=== PATIENT | female | born 1965 | race African-American/Black ===

== ENCOUNTER 2017-10-04 16:32 | Inpatient (IN) | payer OTHER, MEDICAID ==
[~2017-10-04] VITALS: Ht 160 cm; Wt 42.0 kg
[2017-10-04] MEDS ORDERED: SODIUM CHLORIDE 0.9% 1,000 ML IV ONE (17:22)
[2017-10-04] MEDS ORDERED: LORAZEPAM 2MG/ML CPJ IV ONE (17:30)
[2017-10-04 17:57] LABS: BASOPHILS % 0.6 % (0.0-2.0); EOSINOPHILS % 0.3 % (0.0-5.0); HEMATOCRIT. 42.6 % (36.0-48.0); HEMOGLOBIN. 14.9 g/dL (12.0-16.0); LYMPHOCYTES % 15.2 % (20.0-50.0); MEAN CORPUSCULAR HEMOGLOBIN 30.8 pg (28.0-32.0); MEAN CORPUSCULAR VOLUME 88.2 fL (81.0-99.0); MEAN PLATELET VOLUME 9.8 fl (7.4-10.4); MONOCYTES % 9.9 % (2.0-8.0); PLATELET 189 x1000/uL (130-400); RED BLOOD CELL COUNT 4.83 mill/uL (4.2-5.4); RED CELL DISTRIBUTION WIDTH 12.4 % (11.6-14.6)
[2017-10-04 18:01] LABS: CHLORIDE 106 mEq/L (98-107)
[2017-10-04 18:05] LABS: PARTIAL THROMBOPLASTIN TIME 23.3 sec (23.4-31.0); PROTHROMBIN TIME 10.8 sec (9.4-11.6)
[2017-10-04 18:12] LABS: CARBON DIOXIDE 26 mEq/L (21-32); TROPONIN I 0.18 ng/mL (0.00-0.04)
[2017-10-04 18:13] LABS: CREATINE KINASE MB FRACTION 29.2 ng/mL (0.5-3.6)
[2017-10-04 19:25] LABS: CLARITY URINE CLOUDY (CLEAR); COLOR URINE YELLOW (YELLOW); KETONES URINE 1+ (NEGATIVE); LEUKOCYTE ESTERASE URINE NEGATIVE (NEGATIVE); NITRITE URINE NEGATIVE (NEGATIVE); OCCULT BLOOD URINE 1+ (NEGATIVE); PROTEIN URINE 1+ (NEGATIVE)
[2017-10-04] MEDS ORDERED: ASPIRIN 300MG SUPP PR ONE (20:15)
[2017-10-04] MEDS ORDERED: ONDANSETRON HCL 4MG/2ML VIAL IV PRN (20:45)
[2017-10-04 21:13] LABS: ETHANOL BLOOD < 10 mg/dL
[2017-10-04 21:17] LABS: CREATINE KINASE 3270 IU/L (26-192)
[2017-10-04 22:01] LABS: *AMPHETAMINES SCREEN URINE NEGATIVE (NEGATIVE); *BARBITURATES SCREEN URINE NEGATIVE (NEGATIVE); *BENZODIAZEPINES SCREEN URINE NEGATIVE (NEGATIVE); *COCAINE SCREEN URINE NEGATIVE (NEGATIVE); CANNABINOID URINE SCREEN NEGATIVE (NEGATIVE); METHADONE URINE SCREEN NEGATIVE (NEGATIVE); OPIATES URINE SCREEN NEGATIVE (NEGATIVE); PHENCYCLIDINE URINE SCREEN NEGATIVE (NEGATIVE)
[2017-10-04 23:30] VITALS: BP 138/83
[2017-10-05] VITALS: BP 138/83
[2017-10-05] MEDS ORDERED: ATOR10TA69 PO (00:35)
[2017-10-05] MEDS ORDERED: CLOP75TA33 PO (00:35)
[2017-10-05] MEDS ORDERED: BENZ100C86 PO (00:35)
[2017-10-05] MEDS: DEXT 5%/0.45% NACL 1000ML 1,000 ML IV SCH ×2 (00:47→17:16)
[2017-10-05 04:00] VITALS: BP_SYST 114; BP_SYST 120; BP_DIAS 68; BP_DIAS 75
[2017-10-05 06:50] LABS: BASOPHILS % 0.4 % (0.0-2.0); EOSINOPHILS % 0.1 % (0.0-5.0); HEMATOCRIT. 40.3 % (36.0-48.0); HEMOGLOBIN. 14.3 g/dL (12.0-16.0); MEAN CORPUSCULAR HEMOGLOBIN 31.4 pg (28.0-32.0); MEAN CORPUSCULAR VOLUME 88.4 fL (81.0-99.0); MEAN PLATELET VOLUME 10.5 fl (7.4-10.4); MONOCYTES % 11.5 % (2.0-8.0); PLATELET 193 x1000/uL (130-400); RED BLOOD CELL COUNT 4.56 mill/uL (4.2-5.4); RED CELL DISTRIBUTION WIDTH 12.4 % (11.6-14.6)
[2017-10-05 08:00] VITALS: BP 143/87
[2017-10-05] MEDS: PANTOPRAZOLE SODIUM 40 MG/VIAL IV SCH (08:29)
[2017-10-05 08:38] LABS: CHLORIDE 107 mEq/L (98-107)
[2017-10-05 09:07] LABS: CARBON DIOXIDE 24 mEq/L (21-32); CREATINE KINASE 2154 IU/L (26-192); CREATINE KINASE MB FRACTION 12.8 ng/mL (0.5-3.6); HDL CHOLESTEROL 54 mg/dL (40-59); LDL CHOLESTEROL 79 mg/dL (5-100); PHOSPHORUS 3.3 mg/dL (2.5-4.9); TROPONIN I 0.12 ng/mL (0.00-0.04)
[2017-10-05 10:14] LABS: AMMONIA 77 uMol/L (<32)
[2017-10-05 12:00] VITALS: BP 128/75
[2017-10-05] MEDS ORDERED: LORAZEPAM 2MG/ML CPJ IV NR (12:26)
[2017-10-05 13:02] LABS: CREATINE KINASE 2158 IU/L (26-192)
[2017-10-05] MEDS: LACTULOSE 20G/30ML UDC PO SCH ×2 (13:59→21:09)
[2017-10-05 16:00] VITALS: BP 154/91
[2017-10-05 20:00] VITALS: BP 135/93
[2017-10-05] MEDS ORDERED: ATORVASTATIN CALCIUM 40MG TABLET PO SCH (21:00)
[2017-10-06] VITALS (7 sets, daily range): BP systolic 112–123; BP diastolic 74–91
[2017-10-06] MEDS: LACTULOSE 20G/30ML UDC PO SCH ×2 (05:33→17:47)
[2017-10-06 06:13] LABS: BASOPHILS % 0.3 % (0.0-2.0); EOSINOPHILS % 0.2 % (0.0-5.0); HEMATOCRIT. 40.5 % (36.0-48.0); HEMOGLOBIN. 14.2 g/dL (12.0-16.0); LYMPHOCYTES % 32.8 % (20.0-50.0); MEAN CORPUSCULAR HEMOGLOBIN 30.9 pg (28.0-32.0); MEAN CORPUSCULAR VOLUME 88.3 fL (81.0-99.0); MEAN PLATELET VOLUME 10.2 fl (7.4-10.4); MONOCYTES % 8.5 % (2.0-8.0); NEUTROPHILS % 58.2 % (40.0-76.0); PLATELET 183 x1000/uL (130-400); RED BLOOD CELL COUNT 4.59 mill/uL (4.2-5.4); RED CELL DISTRIBUTION WIDTH 12.4 % (11.6-14.6)
[2017-10-06 09:37] LABS: CARBON DIOXIDE 24 mEq/L (21-32); CHLORIDE 108 mEq/L (98-107)
[2017-10-06] MEDS: PANTOPRAZOLE SODIUM 40 MG/VIAL IV SCH (09:45)
[2017-10-06] MEDS: DEXT 5%/0.45% NACL 1000ML 1,000 ML IV SCH (09:47)
[2017-10-06] MEDS ORDERED: ASPIRIN 81MG TABLET PO SCH (13:15)
[2017-10-06] MEDS ORDERED: CLOPIDOGREL 75MG TABLET PO SCH (14:45)
[2017-10-07 08:00] VITALS: BP 123/65
[2017-10-07] MEDS ORDERED: FAMOTIDINE 20MG TABLET PO SCH (09:00)
== END 2017-10-06 21:00 | disposition short-term general hospital (02) | DRG 64 ==
LOC: ER 16:53 → SUPCPDRO 20:12 → EDBEDREQ 20:17 → 5WST 20:19 → ENRESERV 20:36
PROVIDERS: ADMIT Family Medicine Adult Medicine; ATTEND Family Medicine Adult Medicine
PROC: 4A00X4Z Measurement of Central Nervous Electrical Activity, External Approach (ICD-10-PCS; principal; 2017-10-06)
DX: I63.9 Cerebral infarction, unspecified (principal); G92 Toxic encephalopathy; E72.20 Disorder of urea cycle metabolism, unspecified; M62.82 Rhabdomyolysis; R47.01 Aphasia; E78.5 Hyperlipidemia, unspecified; I10 Essential (primary) hypertension; R32 Unspecified urinary incontinence; Z88.0 Allergy status to penicillin; Z88.8 Allergy status to other drugs, medicaments and biological substances
CPT/HCPCS: 36415; 70450; 70551; 71045; 80048; 80053; 80061; 80076; 80305; 81001; 82140; 82550; 82553; 83036; 83735; 84100; 84443; 84484; 85025; 85610; 85730; 87086; 87804; 93005; 93306; 93880; 93970; 96361; 96374; 99285; C9113; G0482; J2060; J7030

== ENCOUNTER 2018-07-29 04:45 | Inpatient (IN) | payer OTHER, MEDICAID ==
[2018-07-29] VITALS (8 sets, daily range): BP systolic 117–159; BP diastolic 50–80
[~2018-07-29] VITALS: Ht 160 cm; Wt 41.7 kg
[~2018-07-29 04:45] MED LIST: ATOR10TA69 PO; BENZ100C86 PO; CLOP75TA33 PO
[2018-07-29 05:03] LABS: HEMATOCRIT. 39.1 % (36.0-48.0); HEMOGLOBIN. 14.1 g/dL (12.0-16.0); MEAN CORPUSCULAR HEMOGLOBIN 30.7 pg (28.0-32.0); MEAN CORPUSCULAR VOLUME 85.2 fL (81.0-99.0); MEAN PLATELET VOLUME 9.1 fl (7.4-10.4); PLATELET 169 x1000/uL (130-400); RED BLOOD CELL COUNT 4.59 mill/uL (4.2-5.4); RED CELL DISTRIBUTION WIDTH 12.8 % (11.6-14.6)
[2018-07-29 05:07] LABS: CHLORIDE 106 mEq/L (98-107)
[2018-07-29 05:11] LABS: INR 1.1; PARTIAL THROMBOPLASTIN TIME 25.4 sec (23.4-31.0); PROTHROMBIN TIME 10.7 sec (9.1-11.1)
[2018-07-29 05:12] LABS: ETHANOL BLOOD < 10 mg/dL
[2018-07-29 05:14] LABS: LDL CHOLESTEROL 51 mg/dL (5-100)
[2018-07-29 05:16] LABS: CREATINE KINASE 84 IU/L (26-192)
[2018-07-29 05:22] LABS: PLATELET ESTIMATE NORMAL
[2018-07-29] MEDS ORDERED: LORAZEPAM 2MG/ML CPJ ONE (05:27)
[2018-07-29] MEDS ORDERED: LEVETIRACETAM 500MG PREMIX 100 ML IV ONE ×2 (05:30→06:15)
[2018-07-29] MEDS ORDERED: LORAZEPAM 2MG/ML CPJ IV ONE (06:30)
[2018-07-29 06:56] LABS: CLARITY URINE CLEAR (CLEAR); COLOR URINE YELLOW (YELLOW); KETONES URINE NEGATIVE (NEGATIVE); LEUKOCYTE ESTERASE URINE NEGATIVE (NEGATIVE); NITRITE URINE NEGATIVE (NEGATIVE); OCCULT BLOOD URINE NEGATIVE (NEGATIVE); PH URINE 7.5 (4.5-8.0); PROTEIN URINE NEGATIVE (NEGATIVE); SPECIFIC GRAVITY URINE 1.019 (1.005-1.030); UROBILINOGEN URINE 0.2 E.U./dL (0.2-1.0)
[2018-07-29 07:05] LABS: *AMPHETAMINES SCREEN URINE NEGATIVE (NEGATIVE); *BARBITURATES SCREEN URINE NEGATIVE (NEGATIVE); *BENZODIAZEPINES SCREEN URINE NEGATIVE (NEGATIVE); *COCAINE SCREEN URINE NEGATIVE (NEGATIVE); METHADONE URINE SCREEN NEGATIVE (NEGATIVE); OPIATES URINE SCREEN NEGATIVE (NEGATIVE)
[2018-07-29 07:06] LABS: CANNABINOID URINE SCREEN NEGATIVE (NEGATIVE); PHENCYCLIDINE URINE SCREEN NEGATIVE (NEGATIVE)
[2018-07-29] MEDS ORDERED: IOHEXOL-350 100 ML BOTTLE ONE (07:49)
[2018-07-29] MEDS ORDERED: IPRATROPIUM/ALBUTEROL 0.5-3(2.5)MG/3ML NEB INH PRN (08:00)
[2018-07-29] MEDS ORDERED: MAGNESIUM/ALUMINUM HYDROXIDE/SIMETHICONE 30ML UDC PO PRN (08:00)
[2018-07-29] MEDS ORDERED: GUAIFENESIN 200MG/10ML SUGAR FREE UDC PO PRN (08:00)
[2018-07-29] MEDS ORDERED: CLONIDINE 0.1MG TABLET PO PRN (08:00)
[2018-07-29] MEDS ORDERED: ACETAMINOPHEN 325MG TABLET PO PRN (08:00)
[2018-07-29] MEDS ORDERED: DOCUSATE SODIUM 100MG CAPSULE PO PRN (08:00)
[2018-07-29] MEDS ORDERED: HYDROCODONE/ACETAMINOPHEN 5/325MG TABLET PO PRN (08:00)
[2018-07-29] MEDS ORDERED: ONDANSETRON HCL 4MG/2ML INJ IV PRN (08:00)
[2018-07-29 10:06] LABS: VITAMIN B12 SERUM 739 pg/mL (211-911)
[2018-07-29 10:15] LABS: FOLIC ACID (FOLATE) SERUM > 20.00 ng/mL (>5.38)
[2018-07-29] MEDS: ASPIRIN 81MG EC TABLET PO SCH (13:00)
[2018-07-29 15:59] LABS: CREATINE KINASE MB FRACTION < 1.0 ng/mL (0.5-3.6)
[2018-07-29] MEDS ORDERED: KEPP500 MT (18:47)
[2018-07-29] MEDS ORDERED: ATORVASTATIN CALCIUM 10MG TABLET PO SCH (21:00)
[2018-07-29 23:38] LABS: CREATINE KINASE MB FRACTION < 1.0 ng/mL (0.5-3.6)
[2018-07-30] VITALS: BP 118/70
[2018-07-30 06:00] VITALS: BP 120/70
[2018-07-30 09:05] LABS: BASOPHILS % 0.4 % (0.0-2.0); EOSINOPHILS % 0.3 % (0.0-5.0); HEMATOCRIT. 41.2 % (36.0-48.0); HEMOGLOBIN. 14.5 g/dL (12.0-16.0); LYMPHOCYTES % 47.6 % (20.0-50.0); MEAN CORPUSCULAR HEMOGLOBIN 30.2 pg (28.0-32.0); MEAN PLATELET VOLUME 9.2 fl (7.4-10.4); MONOCYTES % 11.5 % (2.0-8.0); NEUTROPHILS % 40.2 % (40.0-76.0); PLATELET 188 x1000/uL (130-400); RED BLOOD CELL COUNT 4.79 mill/uL (4.2-5.4)
[2018-07-30 09:07] LABS: CHLORIDE 104 mEq/L (98-107)
[2018-07-30 09:19] LABS: T4 FREE 0.94 ng/dL (0.76-1.46)
[2018-07-30] MEDS: ASPIRIN 81MG EC TABLET PO SCH (09:46)
[2018-07-30 14:17] VITALS: BP 69/35
[2018-07-30 14:18] VITALS: BP 104/75
[2018-07-30 15:25] VITALS: BP 97/69
[2018-07-30 15:39] VITALS: BP 97/69
== END 2018-07-30 17:30 | disposition home or self-care (01) | DRG 64 ==
LOC: ER 04:45 → 5EST 06:35 → EDBEDREQTM 06:36 → EDBEDREQ 06:36 → ENRESERV 08:15 → 5EST 22:56
PROVIDERS: ADMIT Internal Medicine; ATTEND Internal Medicine
DX: I63.9 Cerebral infarction, unspecified (principal); G92 Toxic encephalopathy; I69.351 Hemiplegia and hemiparesis following cerebral infarction affecting right dominant side; R47.01 Aphasia; G93.89 Other specified disorders of brain; R00.0 Tachycardia, unspecified; D11.0 Benign neoplasm of parotid gland; J32.9 Chronic sinusitis, unspecified; I65.22 Occlusion and stenosis of left carotid artery; E78.5 Hyperlipidemia, unspecified; I10 Essential (primary) hypertension; F17.210 Nicotine dependence, cigarettes, uncomplicated; J43.9 Emphysema, unspecified; Z88.0 Allergy status to penicillin; Z88.8 Allergy status to other drugs, medicaments and biological substances; I69.320 Aphasia following cerebral infarction
CPT/HCPCS: 36415; 70496; 70498; 70551; 71045; 80305; 82550; 82553; 82607; 82746; 82962; 83036; 83721; 84439; 84443; 84481; 84484; 93005; 93306; 93970; 96365; 96366; 96375; 99291; G0482; J1953; J2060; Q9967

== ENCOUNTER 2018-09-19 05:55 | Inpatient (IN) | payer OTHER, MEDICAID ==
[~2018-09-19] VITALS: Ht 162.6 cm; Wt 42.6 kg
[~2018-09-19 05:55] MED LIST changes: +KEPP500 PO
[2018-09-19 07:21] LABS: BASOPHILS % 0.4 % (0.0-2.0); EOSINOPHILS % 1.2 % (0.0-5.0); HEMATOCRIT. 41.3 % (36.0-48.0); HEMOGLOBIN. 14.4 g/dL (12.0-16.0); LYMPHOCYTES % 32.7 % (20.0-50.0); MEAN CORPUSCULAR HEMOGLOBIN 30.2 pg (28.0-32.0); MEAN CORPUSCULAR VOLUME 86.3 fL (81.0-99.0); MEAN PLATELET VOLUME 9.4 fl (7.4-10.4); MONOCYTES % 5.5 % (2.0-8.0); NEUTROPHILS % 60.2 % (40.0-76.0); PLATELET 208 x1000/uL (130-400); RED BLOOD CELL COUNT 4.78 mill/uL (4.2-5.4); RED CELL DISTRIBUTION WIDTH 13.2 % (11.6-14.6)
[2018-09-19 07:27] LABS: CHLORIDE 109 mEq/L (98-107)
[2018-09-19 07:31] LABS: ETHANOL BLOOD < 10 mg/dL
[2018-09-19] MEDS ORDERED: LEVETIRACETAM 500MG PREMIX 100 ML IV ONE (07:45)
[2018-09-19 09:10] LABS: CLARITY URINE CLOUDY (CLEAR); COLOR URINE YELLOW (YELLOW); KETONES URINE NEGATIVE (NEGATIVE); LEUKOCYTE ESTERASE URINE NEGATIVE (NEGATIVE); NITRITE URINE NEGATIVE (NEGATIVE); OCCULT BLOOD URINE NEGATIVE (NEGATIVE); PH URINE 7.5 (4.5-8.0); PROTEIN URINE NEGATIVE (NEGATIVE); SPECIFIC GRAVITY URINE 1.024 (1.005-1.030); UROBILINOGEN URINE 0.2 E.U./dL (0.2-1.0)
[2018-09-19] MEDS ORDERED: CLONIDINE 0.1MG TABLET PO PRN (09:15)
[2018-09-19] MEDS ORDERED: DOCUSATE SODIUM 100MG CAPSULE PO PRN (09:15)
[2018-09-19] MEDS ORDERED: ACETAMINOPHEN 325MG TABLET PO PRN (09:15)
[2018-09-19] MEDS ORDERED: HYDROCODONE/ACETAMINOPHEN 5/325MG TABLET PO PRN (09:15)
[2018-09-19] MEDS ORDERED: MAGNESIUM/ALUMINUM HYDROXIDE/SIMETHICONE 30ML UDC PO PRN ×2 (09:15→15:00)
[2018-09-19] MEDS ORDERED: LORAZEPAM 2MG/ML CPJ IV PRN (09:15)
[2018-09-19] MEDS ORDERED: GUAIFENESIN 200MG/10ML SUGAR FREE UDC PO PRN (09:15)
[2018-09-19] MEDS ORDERED: IPRATROPIUM/ALBUTEROL 0.5-3(2.5)MG/3ML NEB INH PRN (09:15)
[2018-09-19] MEDS ORDERED: ONDANSETRON HCL 4MG/2ML INJ IV PRN (09:15)
[2018-09-19] MEDS ORDERED: MORPHINE SULFATE 4 MG/ML CPJ (NOT FOR IM USE) IV PRN (09:15)
[2018-09-19 09:31] LABS: *AMPHETAMINES SCREEN URINE NEGATIVE (NEGATIVE)
[2018-09-19 09:32] LABS: *BARBITURATES SCREEN URINE NEGATIVE (NEGATIVE); *BENZODIAZEPINES SCREEN URINE PRESUMTIVE POSITIVE (NEGATIVE); *COCAINE SCREEN URINE NEGATIVE (NEGATIVE); METHADONE URINE SCREEN NEGATIVE (NEGATIVE); OPIATES URINE SCREEN NEGATIVE (NEGATIVE); PHENCYCLIDINE URINE SCREEN NEGATIVE (NEGATIVE)
[2018-09-19 09:33] LABS: CANNABINOID URINE SCREEN PRESUMTIVE POSITIVE (NEGATIVE)
[2018-09-19] MEDS ORDERED: LEVETIRACETAM 500 MG in SODIUM CHLORIDE 0.9% 100 ML IV SCH ×4 (15:15)
[2018-09-19] MEDS: SODIUM CHLORIDE 0.9% 1,000 ML IV SCH (16:24)
[2018-09-19] MEDS: PANTOPRAZOLE SODIUM 40 MG/VIAL IV SCH (16:24)
[2018-09-19] MEDS: ATORVASTATIN CALCIUM 40MG TABLET PO SCH (16:24)
[2018-09-19] MEDS: CLOPIDOGREL 75MG TABLET PO SCH (16:25)
[2018-09-19] MEDS: ENOXAPARIN 40MG/0.4ML SYR SUBCUT SCH (16:25)
[2018-09-19] MEDS: LEVETIRACETAM 500MG TABLET PO SCH (21:28)
[2018-09-19 21:30] VITALS: BP 120/67
[2018-09-20] VITALS: BP 123/69
[2018-09-20 04:00] VITALS: BP 129/65
[2018-09-20 06:17] LABS: CHLORIDE 110 mEq/L (98-107)
[2018-09-20 06:24] LABS: LDL CHOLESTEROL 58 mg/dL (5-100); PHOSPHORUS 3.8 mg/dL (2.5-4.9)
[2018-09-20 06:26] LABS: BASOPHILS % 0.4 % (0.0-2.0); CREATINE KINASE 112 IU/L (26-192); HDL CHOLESTEROL 44 mg/dL (40-59); HEMATOCRIT. 38.9 % (36.0-48.0); HEMOGLOBIN. 13.3 g/dL (12.0-16.0); LYMPHOCYTES % 40.7 % (20.0-50.0); MEAN CORPUSCULAR VOLUME 87.8 fL (81.0-99.0); MEAN PLATELET VOLUME 10.4 fl (7.4-10.4); MONOCYTES % 7.1 % (2.0-8.0); NEUTROPHILS % 50.8 % (40.0-76.0); PLATELET 183 x1000/uL (130-400); RED BLOOD CELL COUNT 4.43 mill/uL (4.2-5.4); RED CELL DISTRIBUTION WIDTH 13.5 % (11.6-14.6); T4 FREE 0.91 ng/dL (0.76-1.46)
[2018-09-20 08:00] VITALS: BP 124/77
[2018-09-20] MEDS: ATORVASTATIN CALCIUM 40MG TABLET PO SCH (08:07)
[2018-09-20] MEDS: LEVETIRACETAM 500MG TABLET PO SCH (08:07)
[2018-09-20] MEDS: CLOPIDOGREL 75MG TABLET PO SCH (08:07)
[2018-09-20] MEDS: ENOXAPARIN 40MG/0.4ML SYR SUBCUT SCH (08:07)
[2018-09-20] MEDS: SODIUM CHLORIDE 0.9% 1,000 ML IV SCH (08:08)
[2018-09-20] MEDS: PANTOPRAZOLE SODIUM 40 MG/VIAL IV SCH (08:08)
[2018-09-20 12:00] VITALS: BP 115/71
[2018-09-20 15:19] VITALS: BP 127/77
== END 2018-09-20 15:30 | disposition home or self-care (01) | DRG 101 ==
LOC: ER 05:55 → 7WST 08:21 → EDBEDREQ 08:27 → EDBEDREQTM 08:27 → ENRESERV 17:57
PROVIDERS: ADMIT Family Medicine Adult Medicine; ATTEND Family Medicine Adult Medicine
DX: G40.909 Epilepsy, unspecified, not intractable, without status epilepticus (principal); R41.4 Neurologic neglect syndrome; I69.351 Hemiplegia and hemiparesis following cerebral infarction affecting right dominant side; I10 Essential (primary) hypertension; E78.00 Pure hypercholesterolemia, unspecified; I69.320 Aphasia following cerebral infarction; Z88.0 Allergy status to penicillin; Z88.8 Allergy status to other drugs, medicaments and biological substances; Z79.899 Other long term (current) drug therapy
CPT/HCPCS: 36415; 70551; 71045; 80048; 80061; 80305; 82550; 82962; 83735; 83880; 84100; 84439; 84443; 84484; 92523; 92610; 93005; 93970; 96365; 97162; 97165; 99285; C9113; G0482; J1650; J1953; J2060; J7050

== ENCOUNTER 2019-03-12 05:32 | Inpatient (IN) | payer OTHER, MEDICAID ==
[~2019-03-12] VITALS: Ht 320 cm; Wt 45.8 kg
[2019-03-12] MEDS ORDERED: LEVETIRACETAM 500MG PREMIX 100 ML IV ONE (05:45)
[2019-03-12 06:21] LABS: BASOPHILS % 0.3 % (0.0-2.0); EOSINOPHILS % 0.8 % (0.0-5.0); HEMATOCRIT. 39.9 % (36.0-48.0); HEMOGLOBIN. 14.2 g/dL (12.0-16.0); LYMPHOCYTES % 26.2 % (20.0-50.0); MEAN CORPUSCULAR HEMOGLOBIN 30.8 pg (28.0-32.0); MEAN CORPUSCULAR VOLUME 86.7 fL (81.0-99.0); MEAN PLATELET VOLUME 9.6 fl (7.4-10.4); MONOCYTES % 7.3 % (2.0-8.0); NEUTROPHILS % 65.4 % (40.0-76.0); PLATELET 150 x1000/uL (130-400); RED CELL DISTRIBUTION WIDTH 13.8 % (11.6-14.6)
[2019-03-12 06:28] LABS: CHLORIDE 109 mEq/L (98-107)
[2019-03-12 06:34] LABS: ETHANOL BLOOD < 10 mg/dL
[2019-03-12] MEDS ORDERED: LORAZEPAM 2MG/ML CPJ IM STA (07:48)
[2019-03-12] MEDS ORDERED: LORAZEPAM 2MG/ML CPJ ONE (07:51)
[2019-03-12 08:22] LABS: CLARITY URINE CLEAR (CLEAR); COLOR URINE YELLOW (YELLOW); KETONES URINE NEGATIVE (NEGATIVE); LEUKOCYTE ESTERASE URINE NEGATIVE (NEGATIVE); NITRITE URINE NEGATIVE (NEGATIVE); OCCULT BLOOD URINE TRACE (NEGATIVE); PH URINE 6.5 (4.5-8.0); PROTEIN URINE NEGATIVE (NEGATIVE); SPECIFIC GRAVITY URINE 1.023 (1.005-1.030)
[2019-03-12 08:37] LABS: *AMPHETAMINES SCREEN URINE NEGATIVE (NEGATIVE); *BARBITURATES SCREEN URINE NEGATIVE (NEGATIVE); *BENZODIAZEPINES SCREEN URINE PRESUMTIVE POSITIVE (NEGATIVE); *COCAINE SCREEN URINE NEGATIVE (NEGATIVE); CANNABINOID URINE SCREEN PRESUMTIVE POSITIVE (NEGATIVE); METHADONE URINE SCREEN NEGATIVE (NEGATIVE); OPIATES URINE SCREEN NEGATIVE (NEGATIVE); PHENCYCLIDINE URINE SCREEN NEGATIVE (NEGATIVE)
[2019-03-12 10:30] VITALS: BP 122/64
[2019-03-12] MEDS ORDERED: ONDANSETRON HCL 4MG/2ML INJ IV PRN (11:45)
[2019-03-12] MEDS ORDERED: LORAZEPAM 2MG/ML CPJ IV PRN (11:45)
[2019-03-12] MEDS ORDERED: CLONIDINE 0.1MG TABLET PO PRN (11:45)
[2019-03-12] MEDS ORDERED: ACETAMINOPHEN 325MG TABLET PO PRN (11:45)
[2019-03-12] MEDS ORDERED: HYDROCODONE/ACETAMINOPHEN 5/325MG TABLET PO PRN (11:45)
[2019-03-12 12:00] VITALS: BP 150/83
[2019-03-12 14:17] LABS: CREATINE KINASE 193 IU/L (26-192)
[2019-03-12] MEDS: CLOPIDOGREL 75MG TABLET PO SCH (14:41)
[2019-03-12] MEDS: DEXT 5%/0.45% NACL 1000ML 1,000 ML IV SCH (14:42)
[2019-03-12 16:00] VITALS: BP 121/76
[2019-03-12] MEDS ORDERED: LEVE1000 MT (16:43)
[2019-03-12 20:00] VITALS: BP 125/84
[2019-03-12] MEDS: LEVETIRACETAM 500MG/5ML CUP PO SCH (21:04)
[2019-03-13] VITALS: BP 117/50
[2019-03-13 01:22] LABS: CREATINE KINASE 200 IU/L (26-192)
[2019-03-13] MEDS: DEXT 5%/0.45% NACL 1000ML 1,000 ML IV SCH (03:26)
[2019-03-13 04:00] VITALS: BP 148/76
[2019-03-13 05:53] LABS: BASOPHILS % 0.4 % (0.0-2.0); EOSINOPHILS % 0.3 % (0.0-5.0); HEMATOCRIT. 39.8 % (36.0-48.0); LYMPHOCYTES % 20.7 % (20.0-50.0); MEAN CORPUSCULAR HEMOGLOBIN 30.1 pg (28.0-32.0); MEAN CORPUSCULAR VOLUME 85.7 fL (81.0-99.0); MEAN PLATELET VOLUME 9.9 fl (7.4-10.4); MONOCYTES % 7.8 % (2.0-8.0); NEUTROPHILS % 70.8 % (40.0-76.0); PLATELET 159 x1000/uL (130-400); RED BLOOD CELL COUNT 4.65 mill/uL (4.2-5.4); RED CELL DISTRIBUTION WIDTH 13.8 % (11.6-14.6)
[2019-03-13 07:17] LABS: CHLORIDE 106 mEq/L (98-107)
[2019-03-13 08:00] VITALS: BP 103/62
[2019-03-13] MEDS: CLOPIDOGREL 75MG TABLET PO SCH (08:46)
[2019-03-13] MEDS: LEVETIRACETAM 500MG/5ML CUP PO SCH (08:47)
[2019-03-13] MEDS ORDERED: AMLODIPINE 10MG TABLET PO SCH (09:00)
[2019-03-13 10:54] VITALS: BP 103/62
[2019-03-13 12:00] VITALS: BP 129/69
== END 2019-03-13 13:20 | disposition home or self-care (01) | DRG 101 ==
LOC: ER 05:44 → 8WST 08:16 → ENRESERV 09:16 → 8WST 11:48
PROVIDERS: ADMIT Hospitalist; ATTEND Hospitalist
DX: G40.409 Other generalized epilepsy and epileptic syndromes, not intractable, without status epilepticus (principal); I10 Essential (primary) hypertension; Z86.73 Personal history of transient ischemic attack (TIA), and cerebral infarction without residual deficits; Z88.0 Allergy status to penicillin; Z88.8 Allergy status to other drugs, medicaments and biological substances; Z79.899 Other long term (current) drug therapy
CPT/HCPCS: 36415; 71045; 80305; 80320; 82550; 83605; 84484; 93970; 96374; 99285; C1893; J1953; J2060; G0480

== ENCOUNTER 2019-03-24 10:42 | Emergency (ER) | payer OTHER, MEDICAID ==
[~2019-03-24] VITALS: Ht 165.1 cm; Wt 55.0 kg
[~2019-03-24 10:42] MED LIST changes: -BENZ100C86 PO; -KEPP500 PO; +LEVE1000 MT
[2019-03-24 11:00] VITALS: BP 108/72
== END 2019-03-24 12:00 | disposition left against medical advice (07) ==
LOC: ER 10:42
DX: G40.909 Epilepsy, unspecified, not intractable, without status epilepticus (principal); E86.0 Dehydration; E78.5 Hyperlipidemia, unspecified; D68.59 Other primary thrombophilia; R25.2 Cramp and spasm; Z88.0 Allergy status to penicillin; Z88.8 Allergy status to other drugs, medicaments and biological substances; Z86.73 Personal history of transient ischemic attack (TIA), and cerebral infarction without residual deficits; Z91.14 Patient's other noncompliance with medication regimen
CPT/HCPCS: 82962; 93005; 99284

== ENCOUNTER 2019-07-13 17:37 | Emergency (ER) | payer OTHER, MEDICAID ==
[~2019-07-13] VITALS: Ht 157.5 cm; Wt 45.0 kg
[2019-07-13 17:53] VITALS: BP 101/57
== END 2019-07-13 19:30 | disposition left against medical advice (07) ==
LOC: ER 17:37
DX: F10.20 Alcohol dependence, uncomplicated (principal); Z53.21 Procedure and treatment not carried out due to patient leaving prior to being seen by health care provider; Y90.8 Blood alcohol level of 240 mg/100 ml or more

== ENCOUNTER 2019-07-16 22:37 | Inpatient (IN) | payer OTHER, MEDICAID ==
[~2019-07-16] VITALS: Ht 157.5 cm; Wt 50.6 kg
[2019-07-16] MEDS ORDERED: ONDANSETRON HCL 4MG/2ML INJ IV STA (22:41)
[2019-07-16] MEDS ORDERED: SODIUM CHLORIDE 0.9% 1,000 ML IV ONE (22:41)
[2019-07-16] MEDS ORDERED: LORAZEPAM 2MG/ML CPJ ONE (22:43)
[2019-07-16] MEDS ORDERED: LEVETIRACETAM 500MG PREMIX 100 ML IV ONE (22:45)
[2019-07-16] MEDS ORDERED: LORAZEPAM 2MG/ML CPJ IV ONE (22:45)
[2019-07-16 23:10] LABS: BASOPHILS % 0.5 % (0.0-2.0); EOSINOPHILS % 0.5 % (0.0-5.0); HEMATOCRIT. 33.2 % (36.0-48.0); HEMOGLOBIN. 11.6 g/dL (12.0-16.0); LYMPHOCYTES % 39.8 % (20.0-50.0); MEAN CORPUSCULAR HEMOGLOBIN 30.7 pg (28.0-32.0); MEAN CORPUSCULAR VOLUME 87.7 fL (81.0-99.0); MEAN PLATELET VOLUME 8.9 fl (7.4-10.4); MONOCYTES % 8.9 % (2.0-8.0); NEUTROPHILS % 50.3 % (40.0-76.0); PLATELET 215 x1000/uL (130-400); RED BLOOD CELL COUNT 3.79 mill/uL (4.2-5.4); RED CELL DISTRIBUTION WIDTH 13.7 % (11.6-14.6)
[2019-07-16 23:12] LABS: CHLORIDE 109 mEq/L (98-107)
[2019-07-16 23:14] LABS: BG BASE EXCESS 0.3 mmol/L (-2.0-2.0); BG CARBOXYHEMOGLOBIN 3.6 % (0.5-1.5); BG DEOXYHEMOGLOBIN 0.7 % (0.0-5.0); BG FRACTION INSPIRED OXYGEN 100; BG HCO3 ACT 26.4 mmol/L (22.0-26.0); BG METHEMOGLOBIN 0.3 % (0.0-1.5); BG OXYGEN SATURATION 99.3 % (92.0-98.5); BG OXYHEMOGLOBIN 95.4 % (94.0-97.0); BG PO2 454.5 mmHg (75.0-100.0); BG SAMPLE SITE LEFT RADIAL; BG VENT MODE MASK - NRB
[2019-07-16 23:16] LABS: PROTHROMBIN TIME 10.5 sec (9.6-11.0)
[2019-07-17] VITALS (8 sets, daily range): BP systolic 98–145; BP diastolic 60–85
[2019-07-17] MEDS ORDERED: DOCUSATE SODIUM 100MG CAPSULE PO PRN (06:45)
[2019-07-17] MEDS ORDERED: ONDANSETRON HCL 4MG/2ML INJ IV PRN (06:45)
[2019-07-17] MEDS ORDERED: LORAZEPAM 2MG/ML CPJ IV PRN (06:45)
[2019-07-17] MEDS ORDERED: ACETAMINOPHEN 325MG TABLET PO PRN (06:45)
[2019-07-17] MEDS ORDERED: CLONIDINE 0.1MG TABLET PO PRN (06:45)
[2019-07-17] MEDS ORDERED: MORPHINE SULFATE 2 MG/ML CPJ (NOT FOR IM USE) IV PRN (06:45)
[2019-07-17] MEDS ORDERED: DIPHENHYDRAMINE 50MG/ML VIAL IV PRN (06:45)
[2019-07-17] MEDS ORDERED: NA PHOS,M-B/NA PHOS,DI-BA ENEMA 118ML PR PRN (06:45)
[2019-07-17] MEDS ORDERED: IPRATROPIUM/ALBUTEROL 0.5-3(2.5)MG/3ML NEB HHN PRN (06:45)
[2019-07-17] MEDS ORDERED: HYDRALAZINE 20MG/ML VIAL IV PRN (06:45)
[2019-07-17] MEDS ORDERED: HYDROCODONE/ACETAMINOPHEN 10/325MG TABLET PO PRN (06:45)
[2019-07-17] MEDS ORDERED: GUAIFENESIN 200MG/10ML SUGAR FREE UDC PO PRN (06:45)
[2019-07-17] MEDS ORDERED: MAGNESIUM/ALUMINUM HYDROXIDE/SIMETHICONE 30ML UDC PO PRN (06:45)
[2019-07-17] MEDS: CLOPIDOGREL 75MG TABLET PO SCH (10:25)
[2019-07-17] MEDS: LEVETIRACETAM 500MG TABLET PO SCH ×2 (10:26→18:54)
[2019-07-17] MEDS: DEXT 5%/0.45% NACL 1000ML 1,000 ML IV SCH ×2 (10:53→22:55)
[2019-07-17] MEDS: SODIUM CHLORIDE 0.9% INJ 3ML FLUSH IVF SCH ×2 (15:01→21:49)
[2019-07-17 16:17] LABS: CREATINE KINASE 158 IU/L (26-192)
[2019-07-17 16:18] LABS: CREATINE KINASE MB FRACTION 1.8 ng/mL (0.5-3.6)
[2019-07-17] MEDS ORDERED: ATORVASTATIN CALCIUM 10MG TABLET PO SCH (21:00)
[2019-07-17 23:20] LABS: CREATINE KINASE 151 IU/L (26-192)
[2019-07-17 23:21] LABS: CREATINE KINASE MB FRACTION 1.4 ng/mL (0.5-3.6)
[2019-07-18] VITALS (11 sets, daily range): BP systolic 122–149; BP diastolic 66–95
[2019-07-18] MEDS: SODIUM CHLORIDE 0.9% INJ 3ML FLUSH IVF SCH (05:14)
[2019-07-18 07:15] LABS: CHLORIDE 104 mEq/L (98-107)
[2019-07-18 07:27] LABS: BASOPHILS % 0.2 % (0.0-2.0); EOSINOPHILS % 0.3 % (0.0-5.0); HEMATOCRIT. 39.2 % (36.0-48.0); HEMOGLOBIN. 13.5 g/dL (12.0-16.0); LYMPHOCYTES % 30.6 % (20.0-50.0); MEAN CORPUSCULAR HEMOGLOBIN 30.2 pg (28.0-32.0); MEAN CORPUSCULAR VOLUME 87.6 fL (81.0-99.0); MEAN PLATELET VOLUME 9.2 fl (7.4-10.4); MONOCYTES % 6.9 % (2.0-8.0); PLATELET 237 x1000/uL (130-400); RED BLOOD CELL COUNT 4.47 mill/uL (4.2-5.4); RED CELL DISTRIBUTION WIDTH 13.6 % (11.6-14.6)
[2019-07-18 07:39] LABS: LDL CHOLESTEROL 61 mg/dL (5-100)
[2019-07-18 07:41] LABS: HDL CHOLESTEROL 53 mg/dL (40-59); T4 FREE 1.25 ng/dL (0.76-1.46)
[2019-07-18] MEDS: LEVETIRACETAM 500MG TABLET PO SCH ×2 (10:50→18:33)
[2019-07-18] MEDS: CLOPIDOGREL 75MG TABLET PO SCH (10:50)
[2019-07-18] MEDS ORDERED: ATORVASTATIN CALCIUM 40MG TABLET PO SCH (21:00)
== END 2019-07-18 23:34 | disposition short-term general hospital (02) | DRG 101 ==
LOC: ER 22:37 → 3WST 07-17 01:42 → EDBEDREQDT 07-17 01:44 → EDBEDREQTM 07-17 01:44 → EDBEDREQSVC 07-17 01:44 → EDBEDREQ 07-17 01:44 → ENRESERV 07-17 07:13
PROVIDERS: ADMIT Internal Medicine; ATTEND Internal Medicine
DX: G40.401 Other generalized epilepsy and epileptic syndromes, not intractable, with status epilepticus (principal); I69.351 Hemiplegia and hemiparesis following cerebral infarction affecting right dominant side; J84.9 Interstitial pulmonary disease, unspecified; I10 Essential (primary) hypertension; J44.9 Chronic obstructive pulmonary disease, unspecified; S00.81XA Abrasion of other part of head, initial encounter; W18.39XA Other fall on same level, initial encounter; Y93.89 Activity, other specified; Y92.89 Other specified places as the place of occurrence of the external cause; Y99.8 Other external cause status; Z79.02 Long term (current) use of antithrombotics/antiplatelets; Z79.899 Other long term (current) drug therapy; Z87.891 Personal history of nicotine dependence; Z88.0 Allergy status to penicillin; Z88.8 Allergy status to other drugs, medicaments and biological substances
CPT/HCPCS: 36415; 36600; 70551; 71045; 80061; 82140; 82375; 82542; 82550; 82553; 82805; 83036; 83605; 83880; 84439; 84443; 84484; 85379; 92610; 93005; 93306; 93970; 96365; 96366; 96375; 99291; J1953; J2060; J2405; J7030

== ENCOUNTER 2019-07-23 10:36 | Emergency (ER) | payer OTHER, MEDICAID ==
[~2019-07-23] VITALS: Ht 162.6 cm; Wt 49.0 kg
[2019-07-23] MEDS ORDERED: SODIUM CHLORIDE 0.9% 1,000 ML IV ONE (10:50)
[2019-07-23] MEDS ORDERED: LEVETIRACETAM 1000MG/100ML 100 ML IV ONE (11:00)
[2019-07-23 11:09] VITALS: BP 99/58
[2019-07-23 11:20] LABS: BASOPHILS % 0.7 % (0.0-2.0); EOSINOPHILS % 0.3 % (0.0-5.0); HEMATOCRIT. 31.9 % (36.0-48.0); LYMPHOCYTES % 37.6 % (20.0-50.0); MEAN CORPUSCULAR HEMOGLOBIN 30.6 pg (28.0-32.0); MEAN PLATELET VOLUME 8.9 fl (7.4-10.4); MONOCYTES % 7.6 % (2.0-8.0); NEUTROPHILS % 53.8 % (40.0-76.0); PLATELET 201 x1000/uL (130-400); RED BLOOD CELL COUNT 3.59 mill/uL (4.2-5.4); RED CELL DISTRIBUTION WIDTH 13.6 % (11.6-14.6)
[2019-07-23 11:26] LABS: CHLORIDE 112 mEq/L (98-107)
[2019-07-23 11:32] LABS: ETHANOL BLOOD < 10 mg/dL
[2019-07-23 11:35] LABS: CREATINE KINASE 119 IU/L (26-192)
[2019-07-23 11:43] LABS: CARBAMAZEPINE < 0.5 ug/mL (4-12); PHENOBARBITAL < 2.1 ug/mL (15.0-40.0); VALPROIC ACID < 3.0 ug/mL (50-100)
== END 2019-07-23 12:02 | disposition left against medical advice (07) ==
LOC: ER 11:01 → CANBEDREQ 13:06
DX: G40.909 Epilepsy, unspecified, not intractable, without status epilepticus (principal); S09.8XXA Other specified injuries of head, initial encounter; S00.512A Abrasion of oral cavity, initial encounter; Z86.73 Personal history of transient ischemic attack (TIA), and cerebral infarction without residual deficits; Z88.8 Allergy status to other drugs, medicaments and biological substances; Z88.0 Allergy status to penicillin; W01.0XXA Fall on same level from slipping, tripping and stumbling without subsequent striking against object, initial encounter; Y93.89 Activity, other specified; Y92.018 Other place in single-family (private) house as the place of occurrence of the external cause
CPT/HCPCS: 36415; 80053; 80156; 80165; 80184; 80185; 80320; 82550; 85025; 96365; 99283; J1953; J7030; G0480

== ENCOUNTER 2019-08-05 09:58 | Emergency (ER) | payer OTHER, MEDICAID ==
[~2019-08-05] VITALS: Ht 162.6 cm; Wt 46.0 kg
[2019-08-05 10:02] VITALS: BP 100/62
== END 2019-08-05 10:21 | disposition left against medical advice (07) ==
LOC: ER 10:17
DX: F10.129 Alcohol abuse with intoxication, unspecified (principal); I10 Essential (primary) hypertension; I25.2 Old myocardial infarction; Z86.73 Personal history of transient ischemic attack (TIA), and cerebral infarction without residual deficits; Z88.0 Allergy status to penicillin; Z88.8 Allergy status to other drugs, medicaments and biological substances; Y90.9 Presence of alcohol in blood, level not specified
CPT/HCPCS: 99283

== ENCOUNTER 2019-09-22 13:21 | Emergency (ER) | payer OTHER, MEDICAID ==
[~2019-09-22] VITALS: Ht 162.6 cm; Wt 46.0 kg
[2019-09-22 13:24] VITALS: BP 112/59
[2019-09-22] MEDS ORDERED: ATOR10TA PO (13:30)
== END 2019-09-22 14:40 | disposition left against medical advice (07) ==
LOC: ER 13:30
DX: R41.82 Altered mental status, unspecified (principal); R56.9 Unspecified convulsions; Z88.0 Allergy status to penicillin; Z91.018 Allergy to other foods; Z86.73 Personal history of transient ischemic attack (TIA), and cerebral infarction without residual deficits
CPT/HCPCS: 99283

== ENCOUNTER → 2019-09-23 | Emergency (ER) | payer OTHER, MEDICAID ==
[~2019-09-23] MED LIST changes: +ATOR10TA PO
== END | disposition left against medical advice (07) ==
LOC: ER 14:47
DX: S01.91XA Laceration without foreign body of unspecified part of head, initial encounter (principal); Z53.21 Procedure and treatment not carried out due to patient leaving prior to being seen by health care provider; X58.XXXA Exposure to other specified factors, initial encounter; Y93.89 Activity, other specified; Y92.89 Other specified places as the place of occurrence of the external cause; Y99.8 Other external cause status

== ENCOUNTER 2019-09-29 12:48 | Emergency (ER) | payer OTHER, MEDICAID ==
[~2019-09-29] VITALS: Ht 162.6 cm; Wt 60.0 kg
[2019-09-29 12:50] VITALS: BP 86/41
[2019-09-29] MEDS ORDERED: SODIUM CHLORIDE 0.9% 1,000 ML IV ONE (13:17)
[2019-09-29] MEDS ORDERED: LEVETIRACETAM 500MG PREMIX 100 ML IV ONE (13:30)
[2019-09-29 14:05] LABS: BASOPHILS % 0.3 % (0.0-2.0); EOSINOPHILS % 0.2 % (0.0-5.0); HEMATOCRIT. 24.2 % (36.0-48.0); HEMOGLOBIN. 8.1 g/dL (12.0-16.0); LYMPHOCYTES % 34.9 % (20.0-50.0); MEAN CORPUSCULAR HEMOGLOBIN 28.8 pg (28.0-32.0); MEAN CORPUSCULAR VOLUME 86.2 fL (81.0-99.0); MEAN PLATELET VOLUME 8.7 fl (7.4-10.4); MONOCYTES % 9.5 % (2.0-8.0); NEUTROPHILS % 55.1 % (40.0-76.0); PLATELET 160 x1000/uL (130-400); RED BLOOD CELL COUNT 2.81 mill/uL (4.2-5.4); RED CELL DISTRIBUTION WIDTH 14.2 % (11.6-14.6)
[2019-09-29 14:15] LABS: CHLORIDE 121 mEq/L (98-107)
[2019-09-29 14:19] LABS: ETHANOL BLOOD < 10 mg/dL
[2019-09-29 14:24] LABS: VALPROIC ACID < 3.0 ug/mL (50-100)
[2019-09-29 14:27] LABS: CREATINE KINASE 107 IU/L (26-192); PHENOBARBITAL < 2.1 ug/mL (15.0-40.0)
[2019-09-29 14:48] LABS: CARBAMAZEPINE < 0.5 ug/mL (4-12)
== END 2019-09-29 14:39 | disposition left against medical advice (07) ==
LOC: ER 13:02 → CANBEDREQ 19:32
DX: R41.82 Altered mental status, unspecified (principal); R56.9 Unspecified convulsions; E78.00 Pure hypercholesterolemia, unspecified; F17.200 Nicotine dependence, unspecified, uncomplicated; Z71.6 Tobacco abuse counseling; Z88.0 Allergy status to penicillin; Z88.8 Allergy status to other drugs, medicaments and biological substances
CPT/HCPCS: 36415; 71045; 80053; 80156; 80165; 80184; 80185; 80320; 82140; 82550; 83690; 83880; 84443; 85025; 99284; J7030; G0480

== ENCOUNTER 2019-09-29 15:38 | Emergency (ER) | payer OTHER, MEDICAID ==
[~2019-09-29] VITALS: Ht 167.6 cm; Wt 55.0 kg
[2019-09-29] MEDS ORDERED: LEVETIRACETAM 1000MG/100ML 100 ML IV ONE (16:00)
[2019-09-29] MEDS ORDERED: LORAZEPAM 2MG/ML CPJ IV ONE (16:00)
[2019-09-29 16:47] LABS: CHLORIDE 113 mEq/L (98-107)
[2019-09-29 16:51] LABS: ETHANOL BLOOD < 10 mg/dL
[2019-09-29 16:52] LABS: CLARITY URINE CLOUDY (CLEAR); COLOR URINE YELLOW (YELLOW); KETONES URINE NEGATIVE (NEGATIVE); LEUKOCYTE ESTERASE URINE 1+ (NEGATIVE); NITRITE URINE NEGATIVE (NEGATIVE); OCCULT BLOOD URINE NEGATIVE (NEGATIVE); PROTEIN URINE 1+ (NEGATIVE); SPECIFIC GRAVITY URINE 1.018 (1.005-1.030); UROBILINOGEN URINE 0.2 E.U./dL (0.2-1.0)
[2019-09-29 16:52] LABS: BASOPHILS % 0.2 % (0.0-2.0); HEMATOCRIT. 35.4 % (36.0-48.0); HEMOGLOBIN. 11.9 g/dL (12.0-16.0); LYMPHOCYTES % 19.9 % (20.0-50.0); MEAN CORPUSCULAR HEMOGLOBIN 28.8 pg (28.0-32.0); MEAN CORPUSCULAR VOLUME 85.6 fL (81.0-99.0); MEAN PLATELET VOLUME 8.8 fl (7.4-10.4); MONOCYTES % 6.5 % (2.0-8.0); NEUTROPHILS % 73.4 % (40.0-76.0); PLATELET 229 x1000/uL (130-400); RED BLOOD CELL COUNT 4.14 mill/uL (4.2-5.4); RED CELL DISTRIBUTION WIDTH 14.4 % (11.6-14.6)
[2019-09-29 17:25] LABS: *AMPHETAMINES SCREEN URINE NEGATIVE (NEGATIVE)
[2019-09-29 17:26] LABS: *BARBITURATES SCREEN URINE NEGATIVE (NEGATIVE); *BENZODIAZEPINES SCREEN URINE NEGATIVE (NEGATIVE); *COCAINE SCREEN URINE NEGATIVE (NEGATIVE)
[2019-09-29 17:27] LABS: METHADONE URINE SCREEN NEGATIVE (NEGATIVE); OPIATES URINE SCREEN NEGATIVE (NEGATIVE)
[2019-09-29 17:28] LABS: CANNABINOID URINE SCREEN PRESUMTIVE POSITIVE (NEGATIVE); PHENCYCLIDINE URINE SCREEN NEGATIVE (NEGATIVE)
[2019-09-29 20:26] VITALS: BP 106/68
== END 2019-09-29 20:40 | disposition home or self-care (01) ==
LOC: ER 15:38
DX: G40.909 Epilepsy, unspecified, not intractable, without status epilepticus (principal); E78.00 Pure hypercholesterolemia, unspecified; Z88.0 Allergy status to penicillin; Z88.8 Allergy status to other drugs, medicaments and biological substances; F17.200 Nicotine dependence, unspecified, uncomplicated
CPT/HCPCS: 36415; 70450; 80053; 80305; 80320; 81003; 85025; 87086; 96365; 96375; 99284; J1953; J2060; G0480

== ENCOUNTER 2019-11-21 20:07 | Emergency (ER) | payer OTHER, MEDICAID ==
[~2019-11-21] VITALS: Ht 160 cm; Wt 50.0 kg
[2019-11-21] MEDS ORDERED: LEVETIRACETAM 500MG PREMIX 100 ML IV ONE (23:45)
[2019-11-22 01:05] VITALS: BP 120/66
== END 2019-11-22 03:10 | disposition home or self-care (01) ==
LOC: ER 20:07
DX: R56.9 Unspecified convulsions (principal); E78.00 Pure hypercholesterolemia, unspecified; Z88.0 Allergy status to penicillin; Z88.8 Allergy status to other drugs, medicaments and biological substances; Z86.73 Personal history of transient ischemic attack (TIA), and cerebral infarction without residual deficits
CPT/HCPCS: 96365; 99284; J1953

== ENCOUNTER 2019-11-26 21:12 | Emergency (ER) | payer OTHER, MEDICAID ==
[~2019-11-26] VITALS: Ht 157.5 cm; Wt 59.0 kg
[2019-11-26] MEDS ORDERED: LEVETIRACETAM 500MG PREMIX 100 ML IV ONE (21:45)
[2019-11-26 22:23] LABS: BASOPHILS % 0.1 % (0.0-2.0); EOSINOPHILS % 0.1 % (0.0-5.0); HEMATOCRIT. 36.1 % (36.0-48.0); HEMOGLOBIN. 12.5 g/dL (12.0-16.0); LYMPHOCYTES % 41.1 % (20.0-50.0); MEAN CORPUSCULAR HEMOGLOBIN 27.6 pg (28.0-32.0); MEAN CORPUSCULAR VOLUME 79.8 fL (81.0-99.0); MEAN PLATELET VOLUME 8.2 fl (7.4-10.4); MONOCYTES % 9.2 % (2.0-8.0); NEUTROPHILS % 49.5 % (40.0-76.0); PLATELET 273 x1000/uL (130-400); RED BLOOD CELL COUNT 4.52 mill/uL (4.2-5.4); RED CELL DISTRIBUTION WIDTH 15.9 % (11.6-14.6)
[2019-11-26 22:29] LABS: CHLORIDE 109 mEq/L (98-107)
[2019-11-26 22:31] LABS: CLARITY URINE CLEAR (CLEAR); COLOR URINE DARK YELLOW (YELLOW); KETONES URINE TRACE (NEGATIVE); LEUKOCYTE ESTERASE URINE NEGATIVE (NEGATIVE); NITRITE URINE NEGATIVE (NEGATIVE); OCCULT BLOOD URINE NEGATIVE (NEGATIVE); PROTEIN URINE 1+ (NEGATIVE); SPECIFIC GRAVITY URINE 1.035 (1.005-1.030)
[2019-11-26 22:33] LABS: ETHANOL BLOOD < 10 mg/dL
[2019-11-26 22:46] LABS: *AMPHETAMINES SCREEN URINE NEGATIVE (NEGATIVE); *BARBITURATES SCREEN URINE NEGATIVE (NEGATIVE); *BENZODIAZEPINES SCREEN URINE PRESUMTIVE POSITIVE (NEGATIVE)
[2019-11-26 22:47] LABS: *COCAINE SCREEN URINE NEGATIVE (NEGATIVE); CANNABINOID URINE SCREEN PRESUMTIVE POSITIVE (NEGATIVE); METHADONE URINE SCREEN NEGATIVE (NEGATIVE); OPIATES URINE SCREEN NEGATIVE (NEGATIVE); PHENCYCLIDINE URINE SCREEN NEGATIVE (NEGATIVE)
[2019-11-27 03:15] VITALS: BP 136/65
== END 2019-11-27 03:15 | disposition home or self-care (01) ==
LOC: ER 21:12
DX: R56.9 Unspecified convulsions (principal); R41.82 Altered mental status, unspecified; Z86.73 Personal history of transient ischemic attack (TIA), and cerebral infarction without residual deficits; Z88.0 Allergy status to penicillin; Z88.8 Allergy status to other drugs, medicaments and biological substances; Z79.899 Other long term (current) drug therapy
CPT/HCPCS: 36415; 70450; 80053; 80305; 80320; 81003; 85025; 96365; 99284; J1953; G0480

== ENCOUNTER 2019-11-30 16:08 | Emergency (ER) | payer OTHER, MEDICAID ==
[~2019-11-30] VITALS: Ht 165.1 cm; Wt 65.0 kg
[2019-11-30] MEDS ORDERED: SODIUM CHLORIDE 0.9% 1,000 ML IV ONE (16:50)
[2019-11-30] MEDS ORDERED: LEVETIRACETAM 1000MG/100ML 100 ML IV ONE (17:00)
[2019-11-30 17:23] LABS: BASOPHILS % 0.3 % (0.0-2.0); EOSINOPHILS % 0.1 % (0.0-5.0); HEMATOCRIT. 39.3 % (36.0-48.0); HEMOGLOBIN. 13.2 g/dL (12.0-16.0); LYMPHOCYTES % 37.5 % (20.0-50.0); MEAN CORPUSCULAR HEMOGLOBIN 27.5 pg (28.0-32.0); MEAN PLATELET VOLUME 8.7 fl (7.4-10.4); MONOCYTES % 7.8 % (2.0-8.0); NEUTROPHILS % 54.3 % (40.0-76.0); PLATELET 234 x1000/uL (130-400); RED BLOOD CELL COUNT 4.79 mill/uL (4.2-5.4); RED CELL DISTRIBUTION WIDTH 16.3 % (11.6-14.6)
[2019-11-30 17:27] LABS: CHLORIDE 108 mEq/L (98-107)
[2019-11-30 17:32] LABS: ETHANOL BLOOD < 10 mg/dL
[2019-11-30 17:36] LABS: CREATINE KINASE 198 IU/L (26-192)
[2019-11-30 17:39] LABS: CARBAMAZEPINE < 0.5 ug/mL (4-12); PHENOBARBITAL < 2.1 ug/mL (15.0-40.0); VALPROIC ACID < 3.0 ug/mL (50-100)
[2019-11-30] MEDS ORDERED: DEXTROSE 50% WATER 50ML SYRINGE IV ONE (18:00)
[2019-11-30 21:06] LABS: CLARITY URINE CLEAR (CLEAR); COLOR URINE YELLOW (YELLOW); KETONES URINE NEGATIVE (NEGATIVE); LEUKOCYTE ESTERASE URINE NEGATIVE (NEGATIVE); NITRITE URINE NEGATIVE (NEGATIVE); OCCULT BLOOD URINE NEGATIVE (NEGATIVE); PH URINE 6.5 (4.5-8.0); PROTEIN URINE NEGATIVE (NEGATIVE); SPECIFIC GRAVITY URINE 1.017 (1.005-1.030); UROBILINOGEN URINE 0.2 E.U./dL (0.2-1.0)
[2019-11-30 21:39] LABS: *AMPHETAMINES SCREEN URINE NEGATIVE (NEGATIVE); *BARBITURATES SCREEN URINE NEGATIVE (NEGATIVE); *BENZODIAZEPINES SCREEN URINE PRESUMTIVE POSITIVE (NEGATIVE); *COCAINE SCREEN URINE NEGATIVE (NEGATIVE); METHADONE URINE SCREEN NEGATIVE (NEGATIVE); PHENCYCLIDINE URINE SCREEN NEGATIVE (NEGATIVE)
[2019-11-30 21:40] LABS: CANNABINOID URINE SCREEN PRESUMTIVE POSITIVE (NEGATIVE); OPIATES URINE SCREEN NEGATIVE (NEGATIVE)
[2019-11-30 22:33] VITALS: BP 150/90
== END 2019-11-30 23:13 ==
LOC: ER 16:08 → CANBEDREQ 23:21
DX: R56.9 Unspecified convulsions (principal); R40.4 Transient alteration of awareness; E86.0 Dehydration; Z86.73 Personal history of transient ischemic attack (TIA), and cerebral infarction without residual deficits; Z88.0 Allergy status to penicillin; Z79.899 Other long term (current) drug therapy
CPT/HCPCS: 36415; 70450; 71045; 80053; 80156; 80165; 80184; 80185; 80305; 80320; 81003; 82140; 82550; 82962; 83690; 84443; 84484; 85025; 93005; 96365; 96366; 96375; 99285; J1953; J7030; G0480

== ENCOUNTER 2020-06-14 16:51 | Emergency (ER) | payer OTHER, MEDICAID ==
[~2020-06-14] VITALS: Ht 165.1 cm; Wt 55.0 kg
[2020-06-14] MEDS ORDERED: LEVETIRACETAM 1000MG/100ML 100 ML IV ONE (17:15)
[2020-06-14] MEDS ORDERED: SODIUM CHLORIDE 0.9% 500 ML IV ONE (17:15)
[2020-06-14] MEDS ORDERED: ONDANSETRON HCL 4MG/2ML INJ IV STA (17:15)
[2020-06-14 17:30] LABS: CLARITY URINE CLEAR (CLEAR); COLOR URINE DARK YELLOW (YELLOW); KETONES URINE TRACE (NEGATIVE); LEUKOCYTE ESTERASE URINE TRACE (NEGATIVE); NITRITE URINE NEGATIVE (NEGATIVE); OCCULT BLOOD URINE NEGATIVE (NEGATIVE); PROTEIN URINE TRACE (NEGATIVE); SPECIFIC GRAVITY URINE 1.032 (1.005-1.030)
[2020-06-14 17:38] LABS: BASOPHILS % 0.4 % (0.0-2.0); EOSINOPHILS % 0.4 % (0.0-5.0); HEMATOCRIT. 37.9 % (36.0-48.0); LYMPHOCYTES % 36.3 % (20.0-50.0); MEAN CORPUSCULAR HEMOGLOBIN 28.6 pg (28.0-32.0); MEAN CORPUSCULAR VOLUME 83.1 fL (81.0-99.0); MEAN PLATELET VOLUME 9.3 fl (7.4-10.4); MONOCYTES % 10.3 % (2.0-8.0); NEUTROPHILS % 52.6 % (40.0-76.0); PLATELET 206 x1000/uL (130-400); RED BLOOD CELL COUNT 4.56 mill/uL (4.2-5.4)
[2020-06-14 17:41] LABS: *BENZODIAZEPINES SCREEN URINE PRESUMTIVE POSITIVE (NEGATIVE); *COCAINE SCREEN URINE NEGATIVE (NEGATIVE); METHADONE URINE SCREEN NEGATIVE (NEGATIVE); OPIATES URINE SCREEN NEGATIVE (NEGATIVE)
[2020-06-14 17:42] LABS: *AMPHETAMINES SCREEN URINE NEGATIVE (NEGATIVE); *BARBITURATES SCREEN URINE NEGATIVE (NEGATIVE); CANNABINOID URINE SCREEN PRESUMTIVE POSITIVE (NEGATIVE); PHENCYCLIDINE URINE SCREEN NEGATIVE (NEGATIVE)
[2020-06-14 17:43] LABS: CHLORIDE 115 mEq/L (98-107)
[2020-06-14 17:48] LABS: ETHANOL BLOOD < 10 mg/dL
[2020-06-14 23:13] VITALS: BP 125/77
== END 2020-06-14 23:39 ==
LOC: ER 16:51 → CANBEDREQ 06-15 00:01
DX: G40.909 Epilepsy, unspecified, not intractable, without status epilepticus (principal); E86.0 Dehydration; Z88.0 Allergy status to penicillin; Z88.8 Allergy status to other drugs, medicaments and biological substances; Z86.73 Personal history of transient ischemic attack (TIA), and cerebral infarction without residual deficits
CPT/HCPCS: 36415; 80053; 80305; 80320; 81003; 83880; 84484; 85025; 93005; 96365; 96375; 99285; J1953; J2405; J7040; G0480